=== PATIENT | female | born 1940 | race African-American/Black ===

== ENCOUNTER 2018-06-04 10:51 | Inpatient (IN) | payer MEDICARE, MEDICAID ==
[~2018-06-04] VITALS: Ht 154.9 cm; Wt 77.1 kg
[2018-06-04] MEDS ORDERED: DIAZEPAM 2 MG TABLET PO ONE (12:30)
[2018-06-04] MEDS ORDERED: SODIUM CHLORIDE 0.9% 1,000 ML IV ONE (12:53)
[2018-06-04] MEDS ORDERED: KETOROLAC 30MG/ML VIAL IV STA (12:53)
[2018-06-04 14:18] LABS: BASOPHILS % 0.9 % (0.0-2.0); HEMATOCRIT. 37.8 % (36.0-48.0); HEMOGLOBIN. 12.2 g/dL (12.0-16.0); LYMPHOCYTES % 35.2 % (20.0-50.0); MEAN CORPUSCULAR HEMOGLOBIN 26.4 pg (28.0-32.0); MEAN CORPUSCULAR VOLUME 81.9 fL (81.0-99.0); MEAN PLATELET VOLUME 10.7 fl (7.4-10.4); MONOCYTES % 7.2 % (2.0-8.0); NEUTROPHILS % 54.7 % (40.0-76.0); PLATELET 171 x1000/uL (130-400); RED BLOOD CELL COUNT 4.62 mill/uL (4.2-5.4); RED CELL DISTRIBUTION WIDTH 14.3 % (11.6-14.6)
[2018-06-04 14:23] LABS: CHLORIDE 106 mEq/L (98-107)
[2018-06-04 14:34] LABS: PARTIAL THROMBOPLASTIN TIME 27.4 sec (23.4-31.0)
[2018-06-04] MEDS ORDERED: ASPIRIN 325MG EC TABLET PO ONE (14:45)
[2018-06-04] MEDS ORDERED: MORPHINE SULFATE 4 MG/ML CPJ (NOT FOR IM USE) IV STA (15:26)
[2018-06-04] MEDS ORDERED: ONDANSETRON HCL 4MG/2ML INJ IV STA (15:26)
[2018-06-04] MEDS ORDERED: HYDROCODONE/ACETAMINOPHEN 10/325MG TABLET PO PRN (16:45)
[2018-06-04] MEDS ORDERED: CLONIDINE 0.1MG TABLET PO PRN (16:45)
[2018-06-04] MEDS ORDERED: DOCUSATE SODIUM 100MG CAPSULE PO PRN (16:45)
[2018-06-04] MEDS ORDERED: GUAIFENESIN 200MG/10ML SUGAR FREE UDC PO PRN (16:45)
[2018-06-04] MEDS ORDERED: LORAZEPAM 2MG/ML CPJ IV PRN (16:45)
[2018-06-04] MEDS ORDERED: HYDRALAZINE 20MG/ML VIAL IV PRN (16:45)
[2018-06-04] MEDS ORDERED: IPRATROPIUM/ALBUTEROL 0.5-3(2.5)MG/3ML NEB INH PRN (16:45)
[2018-06-04] MEDS ORDERED: ONDANSETRON HCL 4MG/2ML INJ IV PRN (16:45)
[2018-06-04] MEDS ORDERED: NA PHOS,M-B/NA PHOS,DI-BA ENEMA 118ML PR PRN (16:45)
[2018-06-04] MEDS ORDERED: DIPHENHYDRAMINE 50MG/ML VIAL IV PRN (16:45)
[2018-06-04] MEDS ORDERED: MAGNESIUM/ALUMINUM HYDROXIDE/SIMETHICONE 30ML UDC PO PRN (16:45)
[2018-06-04] MEDS ORDERED: DEXTROSE 50% WATER 50ML SYRINGE IV PRN (16:45)
[2018-06-04] MEDS: INSULIN LISPRO 100 UNITS/ML SUBCUT SCH (21:00)
[2018-06-04] MEDS: BLOOD SUGAR DIAGNOSTIC STRIP TEST SCH (21:00)
[2018-06-04 21:33] VITALS: BP 143/55
[2018-06-04] MEDS: SODIUM CHLORIDE 0.9% INJ 3ML FLUSH IVF SCH (21:44)
[2018-06-04] MEDS: ENOXAPARIN 40MG/0.4ML SYR SUBCUT SCH (21:44)
[2018-06-04 21:56] VITALS: BP 143/55
[2018-06-04] MEDS ORDERED: AMLO5TAB4 PO (22:01)
[2018-06-04] MEDS ORDERED: GLIP5TAB12 PO (22:01)
[2018-06-04] MEDS ORDERED: GABA-531 PO (22:01)
[2018-06-04 23:41] LABS: CREATINE KINASE 98 IU/L (26-192); CREATINE KINASE MB FRACTION < 1.0 ng/mL (0.5-3.6)
[2018-06-04 23:52] VITALS: BP 136/62
[2018-06-05 04:00] VITALS: BP 128/77
[2018-06-05] MEDS: HYDROMORPHONE HCL/PF 2MG/ML CPJ IV PRN ×4 (05:05→21:16)
[2018-06-05] MEDS: SODIUM CHLORIDE 0.9% INJ 3ML FLUSH IVF SCH ×3 (05:05→21:16)
[2018-06-05] MEDS: BLOOD SUGAR DIAGNOSTIC STRIP TEST SCH ×4 (06:20→20:46)
[2018-06-05] MEDS: INSULIN LISPRO 100 UNITS/ML SUBCUT SCH ×4 (07:50→20:48)
[2018-06-05 08:00] VITALS: BP 117/53
[2018-06-05 08:06] LABS: BASOPHILS % 0.7 % (0.0-2.0); EOSINOPHILS % 2.9 % (0.0-5.0); HEMATOCRIT. 35.9 % (36.0-48.0); HEMOGLOBIN. 11.6 g/dL (12.0-16.0); LYMPHOCYTES % 48.7 % (20.0-50.0); MEAN CORPUSCULAR HEMOGLOBIN 26.7 pg (28.0-32.0); MEAN CORPUSCULAR VOLUME 82.5 fL (81.0-99.0); MEAN PLATELET VOLUME 10.9 fl (7.4-10.4); MONOCYTES % 7.7 % (2.0-8.0); PLATELET 162 x1000/uL (130-400); RED BLOOD CELL COUNT 4.35 mill/uL (4.2-5.4)
[2018-06-05 08:12] LABS: CHLORIDE 108 mEq/L (98-107)
[2018-06-05 08:23] LABS: LDL CHOLESTEROL 68 mg/dL (5-100)
[2018-06-05 08:24] LABS: CREATINE KINASE 88 IU/L (26-192); CREATINE KINASE MB FRACTION < 1.0 ng/mL (0.5-3.6)
[2018-06-05 08:25] LABS: T4 FREE 1.24 ng/dL (0.76-1.46)
[2018-06-05 08:26] LABS: HDL CHOLESTEROL 44 mg/dL (40-59)
[2018-06-05] MEDS: ASPIRIN 81MG EC TABLET PO SCH (08:36)
[2018-06-05] MEDS ORDERED: INFLUENZA VIRUS VACCINE(AFLURIA) 0.5ML SYR IM ONE (10:00)
[2018-06-05 11:17] VITALS: BP 128/73
[2018-06-05 12:00] VITALS: BP 123/73
[2018-06-05 16:00] VITALS: BP 151/66
[2018-06-05] MEDS: LIDOCAINE HCL 4% CREAM 76GM TUBE TP SCH (17:48)
[2018-06-05 19:54] VITALS: BP 153/61
[2018-06-05] MEDS: ATORVASTATIN CALCIUM 20MG TABLET PO SCH (20:46)
[2018-06-05] MEDS: ENOXAPARIN 40MG/0.4ML SYR SUBCUT SCH (21:16)
[2018-06-06] VITALS: BP 144/64
[2018-06-06 04:00] VITALS: BP 123/56
[2018-06-06] MEDS: BLOOD SUGAR DIAGNOSTIC STRIP TEST SCH ×4 (06:28→20:44)
[2018-06-06] MEDS: SODIUM CHLORIDE 0.9% INJ 3ML FLUSH IVF SCH ×3 (06:28→21:12)
[2018-06-06 06:56] LABS: BASOPHILS % 0.4 % (0.0-2.0); EOSINOPHILS % 1.6 % (0.0-5.0); HEMATOCRIT. 36.7 % (36.0-48.0); HEMOGLOBIN. 11.7 g/dL (12.0-16.0); LYMPHOCYTES % 35.7 % (20.0-50.0); MEAN CORPUSCULAR HEMOGLOBIN 26.2 pg (28.0-32.0); MEAN CORPUSCULAR VOLUME 81.9 fL (81.0-99.0); MEAN PLATELET VOLUME 10.9 fl (7.4-10.4); MONOCYTES % 6.5 % (2.0-8.0); NEUTROPHILS % 55.8 % (40.0-76.0); PLATELET 171 x1000/uL (130-400); RED BLOOD CELL COUNT 4.48 mill/uL (4.2-5.4); RED CELL DISTRIBUTION WIDTH 14.3 % (11.6-14.6)
[2018-06-06 07:45] LABS: CHLORIDE 104 mEq/L (98-107)
[2018-06-06 08:00] VITALS: BP 160/75
[2018-06-06] MEDS: LIDOCAINE HCL 4% CREAM 76GM TUBE TP SCH ×3 (08:37→18:05)
[2018-06-06] MEDS: ASPIRIN 81MG EC TABLET PO SCH (08:37)
[2018-06-06] MEDS: HYDROMORPHONE HCL/PF 2MG/ML CPJ IV PRN ×3 (08:38→20:44)
[2018-06-06] MEDS: INSULIN LISPRO 100 UNITS/ML SUBCUT SCH ×4 (08:39→20:44)
[2018-06-06 12:00] VITALS: BP 166/97
[2018-06-06 20:07] VITALS: BP 150/81
[2018-06-06] MEDS: ATORVASTATIN CALCIUM 20MG TABLET PO SCH (20:43)
[2018-06-06] MEDS: ENOXAPARIN 40MG/0.4ML SYR SUBCUT SCH (21:13)
[2018-06-06 23:49] VITALS: BP 130/60
[2018-06-07] MEDS: SODIUM CHLORIDE 0.9% INJ 3ML FLUSH IVF SCH (05:52)
[2018-06-07] MEDS: BLOOD SUGAR DIAGNOSTIC STRIP TEST SCH ×2 (06:40→12:20)
[2018-06-07 08:00] VITALS: BP 121/55
[2018-06-07] MEDS: ASPIRIN 81MG EC TABLET PO SCH (08:27)
[2018-06-07] MEDS: LIDOCAINE HCL 4% CREAM 76GM TUBE TP SCH ×2 (08:27→13:31)
[2018-06-07] MEDS: INSULIN LISPRO 100 UNITS/ML SUBCUT SCH ×2 (08:32→12:50)
[2018-06-07 12:00] VITALS: BP 126/70
[2018-06-07 12:08] VITALS: BP 126/70
[2018-06-07 14:17] VITALS: BP 55/55
== END 2018-06-07 15:22 | disposition home health service (06) | DRG 347 ==
LOC: ER 10:51 → 6WST 16:49 → EDBEDREQTM 16:57 → EDBEDREQ 16:57 → ENRESERV 20:33
PROVIDERS: ADMIT Internal Medicine; ATTEND Internal Medicine
DX: M48.02 Spinal stenosis, cervical region (principal); E11.42 Type 2 diabetes mellitus with diabetic polyneuropathy; M47.812 Spondylosis without myelopathy or radiculopathy, cervical region; E78.5 Hyperlipidemia, unspecified; I10 Essential (primary) hypertension; M75.50 Bursitis of unspecified shoulder; Z79.84 Long term (current) use of oral hypoglycemic drugs; Z79.899 Other long term (current) drug therapy; Z88.0 Allergy status to penicillin
CPT/HCPCS: 36415; 71045; 73030; 80048; 80061; 82550; 82553; 82962; 83880; 84439; 84443; 84484; 93005; 93306; 96361; 96374; 96375; 97162; 99285; J1170; J1815; J1885; J2270; J2405; J7030

== ENCOUNTER 2021-12-16 18:04 | Emergency (ER) | payer MEDICARE, MEDICAID ==
[~2021-12-16] VITALS: Ht 162.6 cm; Wt 80.0 kg
[~2021-12-16 18:04] MED LIST: AMLO5TAB4 PO; GABA-532 PO; GLIP5TAB12 PO
[2021-12-17] MEDS ORDERED: KETOROLAC 15MG/ML VIAL IM ONE (03:30)
[2021-12-17] MEDS ORDERED: CYCLOBENZAPRINE 10MG TABLET PO PRN (03:30)
[2021-12-17] MEDS ORDERED: METH-653 MT (03:58)
[2021-12-17 04:20] VITALS: BP 160/84
== END 2021-12-17 04:24 | disposition home or self-care (01) ==
LOC: ER 18:04
DX: S16.1XXA Strain of muscle, fascia and tendon at neck level, initial encounter (principal); I10 Essential (primary) hypertension; E11.9 Type 2 diabetes mellitus without complications; Z88.2 Allergy status to sulfonamides; Z88.0 Allergy status to penicillin; X58.XXXA Exposure to other specified factors, initial encounter; Y93.89 Activity, other specified; Y92.018 Other place in single-family (private) house as the place of occurrence of the external cause
CPT/HCPCS: 82962; 93005; 96372; 99283; J1885